=== PATIENT | male | born 1980 | race Two or more races ===

== ENCOUNTER 2021-03-12 09:04 | Emergency (ER) | payer SELFPAY ==
[2021-03-12 09:10] VITALS: BP 129/72; PULSE 92; RESP 19; TEMP 37.1; O2SAT 98; BMI 25.0
--- NOTE | 2021-03-12 09:47 | HMH.EDUTC ---
[facility] [place] Disposition Clinical Impression: Otitis media Qualifiers: Otitis media type: unspecified Laterality: right Qualified Code(s): H66.91 - Otitis media, unspecified, right ear Disposition: Home, Self-Care Condition on Discharge: Good Instructions: Middle Ear Infection, Amoxicillin, Neomycin, Polymyxin, and Hydrocortisone Otic Additional Instructions: Take oral medication as prescribed Use drops as prescribed Follow up if no improvement or any worsening of symptoms Return if needed straight to ER if any life threatening symptoms Prescriptions: Amoxicillin [Amoxicillin 500mg Cap] 500 mg PO TID #30 cap Transmission Status: Received by [facility] Neomyc/Colist/Hydrocort/Thonzn [Cortisporin-Tc Ear Suspension] 4 drops EAR-RIGHT Q8 7 Days #10 ml Transmission Status: Received by [facility] Referrals: Provider,Referral, MD [Primary Care Provider] - As needed Time of Disposition: 10:01 Medical Decision Making - Inocente Inquiry Pt receiving controlled substance: No Inocente was queried for this patient: No Vital Signs: 03/12/21 09:10 03/12/21 10:06 Temperature 98.8 F 98.8 F Temperature Source Oral Pulse Rate 92 H Pulse Rate [Right Brachial] 92 H Respiratory Rate 19 19 Blood Pressure 129/72 Blood Pressure [Right Arm] 129/72 Blood Pressure Mean [Right Arm] 91 Blood Pressure Source [Right Arm] Automatic Cuff Blood Pressure Position [Right Arm] Sitting 02 Sat by Pulse Oximetry 98 Oxygen Delivery Method Room Air Medical Decision Narrative: Patient able to speak and understand minimal German but has bulb assembler on his phone and preferred to use his instead of hospital provided and only used it if he wasnt able to understand questions Prior to discharge patient states feeling crawling sensation again in his ear and rechecked small worm like insected noted and appeared like it was hiding in the canal just behind rim and could not see initially Ear was flushed well no insect noted in flush nor seen with final exam Had ED physician come to [facility] he looked also and couldnt see anything in the ear Recommneded follow up with Dr Oneal [facility] [place] HPI - General Stated complaint: rt ear pain Time Seen by Provider: 03/12/21 09:47 Mode of Arrival: Ambulatory Source of Information: Patient, Relative Limitations: No Limitations Description of Symptoms (Recalled from Triage Doc. by RN): PATIENT C/O RIGHT EAR ACHE X 2 DAYS HEENT Symptoms (Recalled from RN notes): Yes Resp Symptoms (Recalled from RN notes): No Skin Symptoms (Recalled from RN notes): No MS Symptoms (Recalled from RN notes): No Functional Status (Recalled from RN notes): WNL - History of Present Illness Provider Complaint: Patient states that he has been having pain in his right ear for several days and not having pain States that last night he was up most of the night with pain in his ear so today his employer brought him in Patient speaks primarily Italian but does speak and understand most German and had bulb assembler on phone in case he didnt understand something said - Related Data Home Medications Medication Instructions Recorded Confirmed Aspirin [Aspirin 81mg chewable 81 mg PO DAILY 03/12/21 03/12/21 tab] Losartan Potassium [Cozaar 50mg 50 mg PO DAILY 03/12/21 03/12/21 Tablets] Spironolactone [Spironolactone 12.5 mg PO DAILY 03/12/21 03/12/21 25mg Tablet] Previous Rx's Medication Instructions Recorded Amoxicillin [Amoxicillin 500mg 500 mg PO TID #30 cap 03/12/21 Cap] Neomyc/Colist/Hydrocort/Thonzn 4 drops EAR-RIGHT Q8 7 Days #10 ml 03/12/21 [Cortisporin-Tc Ear Suspension] Allergies Allergy/AdvReac Type Severity Reaction Status Date / Time No Known Allergies Allergy Verified 03/12/21 09:28 - Worker's Comp Is this a Worker's Comp case?: No [facility] History - Hepatitis A Screen Drug use history?: No High risk sexual behaviors?: No History of sexually transmitted infection?: No Currently em
[2021-03-12 10:06] VITALS: BP 129/72; PULSE 92; RESP 19; TEMP 37.1; O2SAT 98
== END 2021-03-12 10:43 | disposition home or self-care (01) ==
PROVIDERS: Emergency Provider Nurse Practitioner
DX: H66.91 Otitis media, unspecified, right ear (principal)
CPT/HCPCS: 99202; G0463